=== PATIENT | male | born 1980 | race Caucasian/White ===

== ENCOUNTER 2019-10-04 05:35 | Outpatient (CLI) | payer BC ==
[~2019-10-04] VITALS: Ht 185 cm; Wt 104.5 kg
[~2019-10-04 05:35] MED LIST: AMLO5TAB2 PO; LISI20TA PO
== END 2019-10-04 08:57 ==
LOC: PREOP 05:35
PROVIDERS: ATTEND Surgery
DX: Z01.818 Encounter for other preprocedural examination (principal)

== ENCOUNTER 2019-10-11 10:22 | Day surgery (SDC) | payer BC ==
--- NOTE | 2019-10-02 08:20 | HISTORY AND PHYSICAL ---
DATE OF SERVICE: 10/11/2019 DATE OF PROCEDURE: 10/11/2019 ATTENDING PHYSICIAN: Dr. Block. HISTORY OF PRESENT ILLNESS: The patient is a 39-year-old male, who was referred over to us in need of a colonoscopy. The patient reports that for the last year, he has had intermittent episodes of bright red blood in his stool. He reports that his grandfather did have colon cancer that was diagnosed in his 60s. He denies any dark tarry stools and denies any diarrhea, constipation or any abdominal pain. He reports he has never had a colonoscopy done before in the past. PAST MEDICAL HISTORY: Hypertension. PAST SURGICAL HISTORY: Right foot removal of Zuñiga's neuroma and correction of hammertoe in 2011. ALLERGIES: No known drug allergies. MEDICATIONS: None. SOCIAL HISTORY: Previous for smoke 1-1/2 packs per day for 16 years, quit in 2005, previous for chewing tobacco for 12 years, previous for alcohol. FAMILY HISTORY: Father, diabetes. Paternal grandfather, colon cancer in his 60s. Maternal grandfather, myocardial infarction and hypertension. VITAL SIGNS: Blood pressure is 120/60. Current weight is 256.7 and 6 feet 1 inches. REVIEW OF SYSTEMS: Well-nourished male, in no acute distress. He is not experiencing any shortness of breath or difficulty breathing. No chest pain, palpitations or diaphoresis. No nausea, vomiting or abdominal pain. No diarrhea or constipation. He does report intermittent episodes of red blood per rectum. No dark tarry stools. No fever or chills. No recent inadvertent weight loss. All other review of systems negative. PHYSICAL EXAMINATION: CHEST: Clear. Good breath sounds bilaterally. HEART: Regular, no murmurs. EXTREMITIES: No lower extremity edema. Negative Homans sign. HEENT: No scleral icterus. No cervical lymphadenopathy. ABDOMEN: Soft, nontender, nondistended. SKIN: Warm, dry and pink. NEUROLOGIC: Awake, alert, oriented x3. ASSESSMENT AND PLAN: A 39-year-old male with intermittent episodes of bright red blood per rectum as well as family history of colon cancer with paternal grandfather having the disease. At this time, we will recommend proceeding with a colonoscopy. The risks and benefits of the procedure as well as procedure and home care instructions were explained to the patient. The patient verbalized understanding of instructions and agrees to proceed as planned. At this time, we will schedule the patient for a colonoscopy. Job ID: [id number] DocumentID: [id number] Dictated Date: 09/27/2019 16:38:53 [employer] Agent Date: 09/27/2019 17:04:44 Dictated By: OXANA LLOYD APRN
[~2019-10-11] VITALS: Ht 185 cm; Wt 104.5 kg
[2019-10-11] VITALS (14 sets, daily range): BP systolic 107–144; BP diastolic 60–88
[2019-10-11] MEDS ORDERED: NS IV 500 ML 500 ML IV PRN (10:32)
[2019-10-11] MEDS ORDERED: NS IV 500 ML 500 ML ONE (10:34)
--- NOTE | 2019-10-11 10:37 | Progress Note-Pre Operative ---
Pre-Operative Progress Note H&P Reviewed The H&P was reviewed, patient examined and no changes noted. Date Seen by Provider: Oct 11, 2019 Time Seen by Provider: 10:00 Date H&P Reviewed: Oct 11, 2019 Time H&P Reviewed: 10:00 Pre-Operative Diagnosis: rectal bleed, family hx LISA PRECIADO MD Oct 11, 2019 10:37 POS
--- NOTE | 2019-10-11 10:37 | Conscious Sedation/ASA ---
Conscious Sedation Pre-Proced Time 10:00 ASA Score 2 For ASA 3 and 4: Consider anesthesia and medical clearance. Also, for patients with a history of failed moderate sedation consider anesthesia. Airway Lungs Heart ASA score ASA 1: a normal healthy patient ASA 2: a patient with a mild systemic disease (mid diabetes, controlled hypertension, obesity ASA 3: a patient with a severe systemic disease that limits activity (angina, COPD, prior Myocardial infarction) ASA 4: a patient with an incapacitating disease that is a constant threat to life (CHF, renal failure) ASA 5: a moribund patient not expected to survive 24 hrs. (ruptured aneurysm) ASA 6: a declared brain- patient whose organs are being harvested. For emergent operations, add the letter E after the classification Mallampati Classification Grade 2 Sedation Plan Analgesia, Amnesia, Plan communicated to team members, Discussed options with patient/fam, Discussed risks with patient/fam The patient is an appropriate candidate to undergo the planned procedure, sedation, and anesthesia. The patient immediately re-assessed prior to indication. LISA PRECIADO MD Oct 11, 2019 10:36 POS
--- NOTE | 2019-10-11 10:38 | Discharge Inst-Surgical ---
D/C Lap Instructions-OZZY Follow Up Activity as tolerated High Fiber Diet 25g or more per day Avoid Alcohol, Caffeine, Spicy [place] and Acid foods. Drink 64 fluid oz or more of fluids per day. Symptoms to Report: Fever over 101 degree F, Nausea/Vomiting If any problems/questions: Contact your physician or go to Emergency Room LISA PRECIADO MD Oct 11, 2019 10:38 POS
[2019-10-11] MEDS ORDERED: ACETAMINOPHEN 325 MG TABLET PO PRN (10:45)
[2019-10-11] MEDS ORDERED: ONDANSETRON 4 MG/2 ML (SDV) Z0FRAN IVP PRN (10:45)
[2019-10-11] MEDS ORDERED: morphine INJ 10 MG/ML 1ML (SYR OR VIAL) IVP PRN ×2 (10:45)
[2019-10-11] MEDS ORDERED: fentaNYL INJECTION 100 MCG/2 ML AMP IVP ONE (10:45)
[2019-10-11] MEDS ORDERED: LIDOCAINE JELLY 2% 6 ML SYRINGE MM PRN (10:45)
[2019-10-11] MEDS ORDERED: HYDROcodone/APAP 5 MG/325 MG (LORTAB) TAB PO PRN (10:45)
[2019-10-11] MEDS ORDERED: MIDAZOLAM 5 MG/5 ML (VERSED) VIAL ONE ×2 (12:03)
[2019-10-11] MEDS ORDERED: LIDOCAINE JELLY 2% 6 ML SYRINGE ONE (12:03)
[2019-10-11] MEDS ORDERED: fentaNYL INJECTION 100 MCG/2 ML AMP ONE (12:04)
[2019-10-11] MEDS: MIDAZOLAM 5 MG/5 ML (VERSED) VIAL IV PRN ×4 (12:06→12:25)
--- NOTE | 2019-10-11 12:52 | Progress Note-Post Operative ---
Post-Operative Progess Note Surgeon (s)/Manager University (s) Surgeon LISA PRECIADO MD Manager [employer]: none Pre-Operative Diagnosis rectal bleed, family hx Post-Operative Diagnosis chronic stage 2 ext and int hemorrhoids, anal verge lesion/excoriation(5mm), normal colon and rectum. Procedure & Operative Findings Date of Procedure 10/11/19 Procedure Performed/Findings colonoscopy. Anesthesia Type cs Estimated Blood Loss Estimated blood loss (mL): minimal Specimens/Packing Specimens Removed none LISA PRECIADO MD Oct 11, 2019 12:52 POS
--- NOTE | 2019-10-11 23:21 | OPERATIVE REPORT ---
DATE OF SERVICE: 10/11/2019 ATTENDING PRIMARY CARE PHYSICIAN: Dr. Block. PREOPERATIVE DIAGNOSIS: Rectal bleeding secondary to family history of colon cancer. POSTOPERATIVE DIAGNOSES: Chronic stage II external and internal hemorrhoids, mild excoriation of the anoderm. Remainder of the rectum and colon were normal. PROCEDURE: Colonoscopy. SURGEON: Lisa Preciado MD. ANESTHESIA: Conscious sedation. ESTIMATED BLOOD LOSS: Minimal. FINDINGS: Chronic stage II external and internal hemorrhoids, mild excoriation of the anoderm. Remainder of the rectum and colon were normal. DISPOSITION: The patient tolerated the procedure well. INDICATIONS: The patient is a 39-year-old male referred over to us for rectal bleeding. He reports that this initially started some time ago; however, has worsened and he states with the bleeding, he has noticed some white fibrinous debris at times. He reports a secondary family history of colon cancer with his maternal grandfather having the disease. DESCRIPTION OF PROCEDURE: The patient was brought to the endoscopy suite, laid in the left lateral decubitus position. After adequate IV pain and sedative medications and conscious sedation anesthesia, digital rectal examination was performed. Chronic stage II external and internal hemorrhoids were identified. There was some mild irritation and inflammation. There is also an area of excoriation of the anoderm which may be related to the hemorrhoids; however, cannot rule out separate skin lesion which we will monitor. Normal sphincter tone was felt and there were no palpable masses. The prostate gland was palpable and appeared normal. The endoscope was then intubated to the anus and rectum gently insufflated. The endoscope was then advanced to the valves of [place] of the rectum with no polyps or any neoplasms identified. Through the sigmoid colon, no diverticulosis identified. The endoscope was then advanced to the remainder of the descending, transverse and ascending colon to the cecum. These segments were normal. No polyps or any neoplasms identified throughout the colon or rectum. The endoscope was then slowly withdrawn while taking a second look and suctioning of residual air with no additional findings. The patient tolerated the procedure well. We will recommend a high fiber diet with fiber supplementation to 30 grams daily or more to promote soft stools on a daily basis. Hopefully, allow symptomatic hemorrhoids to involute and not cause him symptoms. If he continues to have symptoms or does notice any further excoriation or a lesion within the anoderm, we will have him follow up for an excisional biopsy. Otherwise, he does not need another colonoscopy for another 10 years. Job ID: [id number] DocumentID: [id number] Dictated Date: 10/11/2019 13:06:02 [employer] Crane Operator Date: 10/11/2019 23:05:02 Dictated By: LISA PRECIADO MD MTDD
== END 2019-10-11 13:30 | disposition home or self-care (01) ==
LOC: ENDO 10:22
PROVIDERS: ATTEND Surgery
DX: K62.5 Hemorrhage of anus and rectum (principal); K63.89 Other specified diseases of intestine; K64.1 Second degree hemorrhoids; K64.8 Other hemorrhoids; I10 Essential (primary) hypertension; Z80.0 Family history of malignant neoplasm of digestive organs; Z87.891 Personal history of nicotine dependence; Z82.49 Family history of ischemic heart disease and other diseases of the circulatory system; Z83.3 Family history of diabetes mellitus

== ENCOUNTER → 2020-08-30 | Outpatient (CLI) | payer BC ==
--- NOTE | 2020-08-30 15:23 | Diagnostic Imaging Report ---
PROCEDURE: US Scrotum. TECHNIQUE: Multiple real-time grayscale images were obtained over the scrotum in various projections bilaterally. INDICATION: Right epididymitis. FINDINGS: Right testicle measures 4.9 x 2.4 x 3.3 cm and the left testicle measures 5.1 x 2.3 x 3.3 cm. Both testes demonstrate homogeneous echotexture. No discrete testicular mass is identified. There is blood flow to both testes. Epididymides have a normal appearance bilaterally. No hydrocele is identified. There does appear to be a right-sided varicocele present. IMPRESSION: 1. No evidence of testicular mass or vascular compromise. 2. Right-sided varicocele. Dictated by: Dictated on workstation # [id number]
== END ==
LOC: RAD 14:32
PROVIDERS: ATTEND Urology
DX: I86.1 Scrotal varices (principal)
CPT/HCPCS: 76870

== ENCOUNTER → 2020-09-09 | Outpatient (CLI) | payer BC ==
[~2020-09-09] MED LIST changes: +HOLD METFORMIN - RECEIVED CONTRAST 20 ML VIAL IV SCH; +IOHEXOL 350 MG/ML 100 ML (OMNIPAQUE 350) VIAL IV ONE; +NS 100 ML (IVPB) BAG IV ONE
--- NOTE | 2020-09-09 11:00 | Diagnostic Imaging Report ---
PROCEDURE: CT chest, abdomen, and pelvis with and without contrast. TECHNIQUE: Precontrast images were obtained of the chest, abdomen, and pelvis. Multiple contiguous axial images were obtained through the chest, abdomen, and pelvis after administration of intravenous contrast. Auto Exposure Controls were utilized during the CT exam to meet ALARA standards for radiation dose reduction. INDICATION: Right renal mass noted on recent ultrasound. The studies are performed for further evaluation. COMPARISON: Correlation is made with renal ultrasound from 09/06/2020. No prior CT studies are available for comparison. FINDINGS: CT Chest: No axillary lymphadenopathy is identified. There is a prominent lymph node in the AP window measuring 2.7 x 2.2 cm. There also appears to be prominent lymph nodes in the leny. Left hilar mass measures 2.1 cm. A right infrahilar mass measures approximately 2.3 cm. No pericardial or pleural fluid is identified. Pulmonary parenchymal evaluation does show several pulmonary micronodules which are indeterminate. Subpleural micronodule in left upper lobe anteriorly image 19 measures 5 mm. Right upper lobe subpleural nodule medially, image 20 measures 3 mm. Right upper lobe nodule, image 26 measures 4 mm. Left lower lobe nodule image 30 measures 6 mm. Additional micronodules are seen in right middle lobe. Osseous structures are unremarkable. CT abdomen and pelvis: No discrete liver mass is identified. Gallbladder is unremarkable. No biliary ductal dilatation is seen. The pancreas and spleen are unremarkable. No adrenal mass is detected. Left kidney is unremarkable. There is a large, complex mixed solid and cystic mass occupying the majority of the right kidney but predominantly the mid and lower third. Mass measures at least 13 cm cephalocaudal x 10.5 cm transverse x 11.8 cm AP. There does appear to be some tumor extension beyond the renal capsule posteriorly where soft tissue nodules are seen in the posterior pararenal space measuring 4.5 cm. There is infiltration of the adjacent fat. There are multiple varicosities inferior to the mass draining into the right renal vein. No definite renal vein or IVC in tumor thrombus is seen. There is a lymph node in the aortocaval region measuring 11 mm. No definite mesenteric lymphadenopathy is seen. Bowel loops are normal caliber. No free fluid or fluid collection is identified. No inguinal or iliac lymphadenopathy is seen. Bladder is unremarkable. Prostate is unremarkable. Osseous structures demonstrate bilateral pars defects at L5-S1. No definite osteolytic lesions are identified. IMPRESSION: 1. Large, complex right renal mass suggestive of a renal cell carcinoma. There does appear to be some tumor extension beyond the renal cortex posteriorly and inferiorly. No definite tumor thrombus within the IVC is identified. There is a mildly prominent aortocaval lymph node present. 2. Mediastinal and hilar lymphadenopathy suggestive of metastatic disease. In addition, there are numerous pulmonary micronodules and pulmonary metastatic disease cannot be entirely excluded. No osteolytic lesions are detected. Dictated by: Dictated on workstation # [id number]
== END ==
LOC: RAD 07:34
PROVIDERS: ATTEND Urology
DX: N28.9 Disorder of kidney and ureter, unspecified (principal); R59.0 Localized enlarged lymph nodes; R91.8 Other nonspecific abnormal finding of lung field
CPT/HCPCS: 71270; 74178

== ENCOUNTER → 2020-09-30 | Outpatient (CLI) | payer BC ==
[~2020-09-30] MED LIST changes: -HOLD METFORMIN - RECEIVED CONTRAST 20 ML VIAL IV SCH; -IOHEXOL 350 MG/ML 100 ML (OMNIPAQUE 350) VIAL IV ONE; -NS 100 ML (IVPB) BAG IV ONE
== END ==
LOC: LABNPT 05:40
DX: Z20.828 Contact with and (suspected) exposure to other viral communicable diseases (principal)
CPT/HCPCS: 87635

== ENCOUNTER → 2020-12-13 | Outpatient (CLI) | payer BC | LOC: LABNPT 05:21 | PROVIDERS: ATTEND Internal Medicine Hospice and Palliative Medicine | DX: C64.1 Malignant neoplasm of right kidney, except renal pelvis (principal); Z20.822 Contact with and (suspected) exposure to COVID-19 | CPT/HCPCS: 87635 ==

== ENCOUNTER → 2021-01-03 | Outpatient (CLI) | payer BC | LOC: LABNPT 08:25 | PROVIDERS: ATTEND Internal Medicine Hospice and Palliative Medicine | DX: C64.1 Malignant neoplasm of right kidney, except renal pelvis (principal); Z20.822 Contact with and (suspected) exposure to COVID-19 | CPT/HCPCS: 87635 ==

== ENCOUNTER → 2021-01-24 | Outpatient (CLI) | payer BC | LOC: LABNPT 08:20 | PROVIDERS: ATTEND Internal Medicine Hospice and Palliative Medicine | DX: C64.1 Malignant neoplasm of right kidney, except renal pelvis (principal); Z20.822 Contact with and (suspected) exposure to COVID-19 | CPT/HCPCS: 87635 ==

== ENCOUNTER → 2021-02-14 | Outpatient (CLI) | payer BC | LOC: LABNPT 08:15 | PROVIDERS: ATTEND Internal Medicine Hospice and Palliative Medicine | DX: C64.1 Malignant neoplasm of right kidney, except renal pelvis (principal); Z20.822 Contact with and (suspected) exposure to COVID-19 ==

== ENCOUNTER 2021-03-05 07:57 | Outpatient (RCR) | payer BC ==
[2021-02-26 08:42] LABS: FREE T4 (FREE THYROXINE) 0.89 NG/DL (0.70-1.48)
== END 2021-05-27 | disposition home or self-care (01) ==
LOC: LAB 07:57
PROVIDERS: ATTEND Internal Medicine Hospice and Palliative Medicine
DX: C64.1 Malignant neoplasm of right kidney, except renal pelvis (principal); E27.49 Other adrenocortical insufficiency
CPT/HCPCS: 36415; 84402; 84403; 84439; 84443

== ENCOUNTER → 2021-03-05 | Outpatient (CLI) | payer BC | LOC: LABNPT 06:46 | PROVIDERS: ATTEND Internal Medicine Hospice and Palliative Medicine | DX: C64.1 Malignant neoplasm of right kidney, except renal pelvis (principal); Z20.822 Contact with and (suspected) exposure to COVID-19 | CPT/HCPCS: 87635 ==

== ENCOUNTER → 2021-03-17 | Outpatient (CLI) | payer BC | LOC: LABNPT 08:13 | PROVIDERS: ATTEND Internal Medicine Hospice and Palliative Medicine | DX: C64.1 Malignant neoplasm of right kidney, except renal pelvis (principal); Z20.822 Contact with and (suspected) exposure to COVID-19 | CPT/HCPCS: 87635 ==

== ENCOUNTER → 2021-04-01 | Outpatient (CLI) | payer BC ==
[2021-04-01 09:22] LABS: BASOPHILS % (AUTO) 0 % (0-10); EOSINOPHILS # (AUTO) 0.2 10^3/uL (0.0-0.3); EOSINOPHILS % (AUTO) 2 % (0-10); HEMATOCRIT 42 % (40-54); HEMOGLOBIN 13.8 g/dL (13.3-17.7); LYMPHOCYTES # (AUTO) 1.1 10^3/uL (1.0-4.0); LYMPHOCYTES % (AUTO) 13 % (12-44); MEAN CORPUSCULAR HEMOGLOBIN 29 pg (25-34); MEAN CORPUSCULAR HGB CONC 33 g/dL (32-36); MEAN CORPUSCULAR VOLUME 88 fL (80-99); MEAN PLATELET VOLUME 9.8 fL (9.0-12.2); MONOCYTES # (AUTO) 0.7 10^3/uL (0.0-1.0); MONOCYTES % (AUTO) 9 % (0-12); NEUTROPHILS # (AUTO) 6.4 10^3/uL (1.8-7.8); NEUTROPHILS % (AUTO) 76 % (42-75); PLATELET COUNT 252 10^3/uL (130-400); WHITE BLOOD COUNT 8.5 10^3/uL (4.3-11.0)
[2021-04-01 09:23] LABS: BILIRUBIN,URINE NEGATIVE (NEGATIVE); CLARITY,URINE CLEAR; COLOR,URINE YELLOW; GLUCOSE, URINE (UA) NEGATIVE (NEGATIVE); KETONES,URINE NEGATIVE (NEGATIVE); LEUKOCYTE ESTERASE ,URINE NEGATIVE (NEGATIVE); NITRITE,URINE NEGATIVE (NEGATIVE); PH,URINE 5.5 (5-9); PROTEIN,URINE NEGATIVE (NEGATIVE)
[2021-04-01 09:38] LABS: BACTERIA,URINE NEGATIVE /HPF
[2021-04-01 09:47] LABS: ALBUMIN 4.3 GM/DL (3.2-4.5); BILIRUBIN,TOTAL 0.5 MG/DL (0.1-1.0); CALCIUM 9.4 MG/DL (8.5-10.1); CREATININE SERUM 1.54 MG/DL (0.60-1.30); POTASSIUM 4.2 MMOL/L (3.6-5.0); TOTAL PROTEIN 7.1 GM/DL (6.4-8.2)
[2021-04-01 10:10] LABS: FREE T4 (FREE THYROXINE) 0.84 NG/DL (0.70-1.48)
== END ==
LOC: LAB 09:05
PROVIDERS: ATTEND Physician Assistant
DX: C64.1 Malignant neoplasm of right kidney, except renal pelvis (principal)
CPT/HCPCS: 36415; 80053; 81000; 84439; 84443; 85025

== ENCOUNTER → 2021-04-01 | Outpatient (CLI) | payer BC | LOC: LABNPT 10:45 | PROVIDERS: ATTEND Nurse Practitioner Family | DX: R26.9 Unspecified abnormalities of gait and mobility (principal) | CPT/HCPCS: 84550 ==

== ENCOUNTER → 2021-04-11 | Outpatient (CLI) | payer BC | LOC: LABNPT 06:33 | PROVIDERS: ATTEND Internal Medicine Hospice and Palliative Medicine | DX: C64.1 Malignant neoplasm of right kidney, except renal pelvis (principal); Z20.822 Contact with and (suspected) exposure to COVID-19 | CPT/HCPCS: 87635 ==

== ENCOUNTER → 2021-04-28 | Outpatient (CLI) | payer BC ==
[2021-04-28 08:59] LABS: BILIRUBIN,URINE NEGATIVE (NEGATIVE); CLARITY,URINE CLEAR; COLOR,URINE YELLOW; GLUCOSE, URINE (UA) NEGATIVE (NEGATIVE); KETONES,URINE NEGATIVE (NEGATIVE); LEUKOCYTE ESTERASE ,URINE NEGATIVE (NEGATIVE); NITRITE,URINE NEGATIVE (NEGATIVE); PROTEIN,URINE NEGATIVE (NEGATIVE)
[2021-04-28 09:00] LABS: BASOPHILS # (AUTO) 0.1 10^3/uL (0.0-0.1); BASOPHILS % (AUTO) 1 % (0-10); EOSINOPHILS # (AUTO) 0.3 10^3/uL (0.0-0.3); EOSINOPHILS % (AUTO) 4 % (0-10); HEMATOCRIT 39 % (40-54); HEMOGLOBIN 13.3 g/dL (13.3-17.7); LYMPHOCYTES # (AUTO) 0.9 10^3/uL (1.0-4.0); LYMPHOCYTES % (AUTO) 13 % (12-44); MEAN CORPUSCULAR HEMOGLOBIN 29 pg (25-34); MEAN CORPUSCULAR HGB CONC 34 g/dL (32-36); MEAN CORPUSCULAR VOLUME 87 fL (80-99); MONOCYTES # (AUTO) 0.5 10^3/uL (0.0-1.0); MONOCYTES % (AUTO) 7 % (0-12); NEUTROPHILS # (AUTO) 4.9 10^3/uL (1.8-7.8); NEUTROPHILS % (AUTO) 74 % (42-75); PLATELET COUNT 222 10^3/uL (130-400); WHITE BLOOD COUNT 6.6 10^3/uL (4.3-11.0)
[2021-04-28 09:11] LABS: BACTERIA,URINE NEGATIVE /HPF; WBC,URINE RARE /HPF
[2021-04-28 09:30] LABS: ALBUMIN 4.1 GM/DL (3.2-4.5); BILIRUBIN,TOTAL 0.4 MG/DL (0.1-1.0); CALCIUM 9.6 MG/DL (8.5-10.1); CREATININE SERUM 1.39 MG/DL (0.60-1.30); POTASSIUM 4.6 MMOL/L (3.6-5.0); TOTAL PROTEIN 6.9 GM/DL (6.4-8.2)
[2021-04-28 09:51] LABS: FREE T4 (FREE THYROXINE) 0.78 NG/DL (0.70-1.48)
== END ==
LOC: LAB 08:35
DX: Z00.6 Encounter for examination for normal comparison and control in clinical research program (principal); C64.1 Malignant neoplasm of right kidney, except renal pelvis
CPT/HCPCS: 36415; 80053; 81000; 84439; 84443; 85025

== ENCOUNTER → 2021-05-09 | Outpatient (CLI) | payer BC | LOC: LABNPT 06:22 | PROVIDERS: ATTEND Internal Medicine Hospice and Palliative Medicine | DX: C64.1 Malignant neoplasm of right kidney, except renal pelvis (principal); Z20.822 Contact with and (suspected) exposure to COVID-19 | CPT/HCPCS: 87635 ==

== ENCOUNTER → 2021-05-23 | Outpatient (CLI) | payer BC ==
[2021-05-23 08:51] LABS: BASOPHILS # (AUTO) 0.1 10^3/uL (0.0-0.1); BASOPHILS % (AUTO) 1 % (0-10); EOSINOPHILS # (AUTO) 0.3 10^3/uL (0.0-0.3); EOSINOPHILS % (AUTO) 4 % (0-10); HEMATOCRIT 40 % (40-54); HEMOGLOBIN 13.4 g/dL (13.3-17.7); LYMPHOCYTES # (AUTO) 1.2 10^3/uL (1.0-4.0); LYMPHOCYTES % (AUTO) 19 % (12-44); MEAN CORPUSCULAR HEMOGLOBIN 29 pg (25-34); MEAN CORPUSCULAR HGB CONC 34 g/dL (32-36); MEAN CORPUSCULAR VOLUME 86 fL (80-99); MEAN PLATELET VOLUME 9.8 fL (9.0-12.2); MONOCYTES # (AUTO) 0.6 10^3/uL (0.0-1.0); MONOCYTES % (AUTO) 10 % (0-12); NEUTROPHILS # (AUTO) 4.2 10^3/uL (1.8-7.8); NEUTROPHILS % (AUTO) 66 % (42-75); PLATELET COUNT 241 10^3/uL (130-400); WHITE BLOOD COUNT 6.3 10^3/uL (4.3-11.0)
[2021-05-23 09:08] LABS: ALBUMIN 4.2 GM/DL (3.2-4.5); BILIRUBIN,TOTAL 0.4 MG/DL (0.1-1.0); CALCIUM 9.2 MG/DL (8.5-10.1); CREATININE SERUM 1.5 MG/DL (0.60-1.30); POTASSIUM 4.7 MMOL/L (3.6-5.0); TOTAL PROTEIN 6.9 GM/DL (6.4-8.2)
[2021-05-23 09:30] LABS: FREE T4 (FREE THYROXINE) 0.73 NG/DL (0.70-1.48)
== END ==
LOC: LAB 08:30
PROVIDERS: ATTEND Physician Assistant
DX: C64.1 Malignant neoplasm of right kidney, except renal pelvis (principal)
CPT/HCPCS: 36415; 80053; 84439; 84443; 85025

== ENCOUNTER → 2021-06-06 | Outpatient (CLI) | payer BC | LOC: LABNPT 08:59 | DX: Z20.822 Contact with and (suspected) exposure to COVID-19 (principal) | CPT/HCPCS: 87635 ==

== ENCOUNTER → 2021-08-01 | Outpatient (CLI) | payer BC | LOC: LABNPT 08:33 → MERGE 08:33 | PROVIDERS: ATTEND Internal Medicine Hospice and Palliative Medicine | DX: Z20.822 Contact with and (suspected) exposure to COVID-19 (principal) | CPT/HCPCS: 87635 ==

== ENCOUNTER → 2021-08-29 | Outpatient (CLI) | payer BC | LOC: LABNPT 08:20 | PROVIDERS: ATTEND Internal Medicine Hospice and Palliative Medicine | DX: C64.1 Malignant neoplasm of right kidney, except renal pelvis (principal); Z20.822 Contact with and (suspected) exposure to COVID-19 | CPT/HCPCS: 87635 ==

== ENCOUNTER → 2021-09-26 | Outpatient (CLI) | payer BC | LOC: LABNPT 08:28 | PROVIDERS: ATTEND Internal Medicine Hospice and Palliative Medicine | DX: Z01.812 Encounter for preprocedural laboratory examination (principal); Z20.822 Contact with and (suspected) exposure to COVID-19 | CPT/HCPCS: 87635 ==

== ENCOUNTER → 2021-10-24 | Outpatient (CLI) | payer BC | LOC: LABNPT 08:37 | DX: C64.1 Malignant neoplasm of right kidney, except renal pelvis (principal); Z20.822 Contact with and (suspected) exposure to COVID-19 | CPT/HCPCS: 87635 ==

== ENCOUNTER → 2021-11-25 | Outpatient (CLI) | payer BC | LOC: LABNPT 08:33 | PROVIDERS: ATTEND Internal Medicine Hospice and Palliative Medicine | DX: C64.1 Malignant neoplasm of right kidney, except renal pelvis (principal); Z20.822 Contact with and (suspected) exposure to COVID-19 | CPT/HCPCS: 87635 ==

== ENCOUNTER → 2021-12-19 | Outpatient (CLI) | payer BC | LOC: LABNPT 08:26 | DX: Z20.822 Contact with and (suspected) exposure to COVID-19 (principal) | CPT/HCPCS: 87635 ==

== ENCOUNTER → 2021-12-19 | Outpatient (CLI) | payer BC | LOC: LABNPT 08:30 | DX: Z53.9 Procedure and treatment not carried out, unspecified reason (principal) ==

== ENCOUNTER → 2022-01-16 | Outpatient (CLI) | payer BC | LOC: LABNPT 08:00 | DX: Z20.822 Contact with and (suspected) exposure to COVID-19 (principal) | CPT/HCPCS: 87636 ==

== ENCOUNTER 2022-12-07 09:33 | Outpatient (RCR) | payer BC, OTHER | END 2022-12-08 | disposition home or self-care (01) | LOC: ONC 09:33 | PROVIDERS: ATTEND Internal Medicine Hematology & Oncology | DX: C09.9 Malignant neoplasm of tonsil, unspecified (principal); Z87.891 Personal history of nicotine dependence; Z85.528 Personal history of other malignant neoplasm of kidney | CPT/HCPCS: 99205 ==